=== PATIENT | male | born 2000 | race Caucasian/White ===

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

== ENCOUNTER 2024-06-07 07:26 | Emergency (ER) | payer OTHER, SELFPAY ==
[2024-06-07 07:45] VITALS: BP 119/79; PULSE 64; RESP 16; TEMP 36.2; O2SAT 99; BMI 21.8
--- NOTE | 2024-06-07 08:09 | ED.ANIMALBIT ---
HPI - Animal Bite General Chief Complaint: Animal Bite Stated Complaint: dog bite Time Seen by Provider: 06/07/24 07:56 Source: patient Mode of arrival: Ambulatory Limitations: no limitations History of Present Illness HPI narrative: Patient is a 23-year-old male here for evaluation of a dog bite to his left forearm. Patient states that 2 of the family dogs were fighting each other and he went to separate the dogs and was bitten by 1 of them. He states the dog is up-to-date on its immunizations. He was a small laceration on the back of the left forearm. No other injuries from the event. He is not up-to-date on his tetanus. Related Data Previous Rx's Medication Instructions Recorded amoxicillin 875 mg-potassium 1 tab PO BID 5 days #10 tabs 06/07/24 clavulanate 125 mg tablet Allergies Allergy/AdvReac Type Severity Reaction Status Date / Time No Known Drug Allergies Allergy Verified 10/19/18 21:26 Review of Systems Musculoskeletal Musculoskeletal: Reports system reviewed and no additional complaints, except as documented Integumentary/Breasts Skin/Breast: Reports system reviewed and no additional complaints, except as documented Neurologic Neurologic: Reports system reviewed and no additional complaints, except as documented Patient History Medical History Constipation Social History Smoking Status: Current every day smoker Smoking Status: Current every day smoker tobacco type: vaping alcohol intake frequency: a few times a week Substance Use Type: does not use Exam Initial Vital Signs Initial Vital Signs: Vital Signs Temperature 97.1 F L 06/07/24 07:45 Pulse Rate 64 06/07/24 07:45 Respiratory Rate 16 06/07/24 07:45 Blood Pressure 119/79 06/07/24 07:45 Pulse Oximetry 99 06/07/24 07:45 Oxygen Delivery Method Room Air 06/07/24 07:45 Skin Other: Several superficial abrasions on the volar aspect of the distal left forearm. Patient has a 0.5 cm laceration on the dorsal aspect of the left distal forearm. No active bleeding. Neuro Sensory Exam: no sensory deficits noted Course Orders Ordered: Discontinued Medications Diphtheria/Tetanus/Acell Pertussis (Tet,Diph,Pertuss(Acell),Vac/Pf 0.5 Ml Syringe) 0.5 ml IM .ONCE ONE Stop: 06/07/24 07:57 Vital Signs Vital signs: Vital Signs - 8 hr 06/07/24 07:45 Temperature 97.1 F L Pulse Rate 64 Respiratory Rate 16 Blood Pressure 119/79 Pulse Oximetry 99 Oxygen Delivery Method Room Air MDM - Animal Bite MDM Narrative Medical decision making narrative: Patient is neurovascularly intact. One Steri-Strip was placed over the superficial laceration of the dorsum of the forearm to approximate the edges slightly. His tetanus was updated. He was leaving [place] an [place] trip at the end of this week. I would not normally start the patient on prophylactic antibiotics however at about the time that we would expect an infection to start develop he will be [place] so the plan will be to start him on an antibiotic because it is in his left distal forearm. Patient was given care instructions and return precautions. He expressed understanding and agreement with plan. His wound was irrigated extensively with soap and water at bedside prior to placement of the Steri-Strips. There are no foreign bodies. Low suspicion for fractures. Discharge Plan Departure Patient Disposition: Home Clinical Impression: Dog bite Instructions: DI for Dog Bite Activity Restrictions/Additional Instructions: You can shower like normal and you soap and water. Take the antibiotics as directed. Return to the emergency department for new or worsening symptoms. Prescriptions: New amoxicillin-pot clavulanate 875-125 mg tablet 1 tab PO BID 5 Days Qty: 10 0RF Referrals: Ibeth Garner MD [Primary Care Provider] - Stand Alone Forms: Patient Portal/API
[2024-06-07] MEDS: TET,DIPH,PERTUSS(ACELL),VAC/PF 0.5 ML SYRINGE IM (08:17)
== END 2024-06-07 08:26 | disposition home or self-care (01) ==
PROVIDERS: Emergency Provider Emergency Medicine; Family Provider Pediatrics; PCP Pediatrics
DX: S50.872A Other superficial bite of left forearm, initial encounter (principal); W54.0XXA Bitten by dog, initial encounter; Y93.89 Activity, other specified; Z23 Encounter for immunization
CPT/HCPCS: 90471; 99283; 90715